=== PATIENT | female | born 1955 | race Two or more races ===

== ENCOUNTER 2018-07-16 17:43 | Inpatient (IN) | payer MEDICARE, OTHER ==
[~2018-07-16] VITALS: Ht 160 cm; Wt 83.9 kg
[2018-07-16 21:15] VITALS: BP 139/69
--- NOTE | 2018-07-16 21:15 | NUR ---
GPS/RN NOTE: ADMITTED DIRECTLY TO GPS UNIT A 63 YEAR OLD FEMALE FROM [facility] VOLUNTARY ADMISSION. PATIENT STATES SHE FEELS VERY ANXIOUS AND DESPERATE. SHE FEELS SCARED BUT CAN'T VERBALIZE EXACTLY WHAT SHE IS SCARED ABOUT. SHE FEELS HOPELESS AND HELPLESS. SHE HAS NO PLAN TO HURT HERSELF, SHE HAD PRIOR TREATMENT BEFORE. NO HX OF PRIOR SUICIDE PER RECORD. PATIENT WAS PLACED IN BED. ALERT ORIENTED X3-4, AMBULATORY, SKIN CLEAR, SHE IS C/O ITCHING ON ARMS AND LEGS. NO S/S OF ANY RESPIRATORY DISTRESS, LUNGS CLEAR BILATERALLY, DENIES ANY PAIN. PATIENT IS CALM, COOPERATIVE, THOUGHT PROCESS INTACT, APPROPRIATE, WELL GROOMED, DEPRESSED, ANXIOUS, SPEAKS URUGUAYAN AND MOSTLY THAI. PATIENT INTERACTS WHEN ENGAGED. PREFERS FULL CODE, SIGNED CONSENTS. BELONGINGS INVENTORIED AND CHECKED FOR CONTRABAND. DR. RO CAME TO THE UNIT AND SAW PATIENT, MED RECON NEEDS TO BE DONE. MRSA SCREEN DONE. SON EUGENE AWARE OF ADMISSION, PER PATIENT. VITALS 139/69, 68, 98.4, 0, 95% SAT. ON ROOM AIR. BED LOCKED AND PLACED ON LOWEST PPOSITION. WILL CONTINUE TO MONITOR Q 15 MINS. TO MAINTAIN SAFETY.
[2018-07-16] MEDS ORDERED: MAGNESIUM HYDROXIDE 30 ML UDC PO PRN (22:30)
[2018-07-16] MEDS ORDERED: ZOLPIDEM TARTRATE 5 MG TABLET PO PRN (22:30)
[2018-07-16] MEDS ORDERED: LORAZEPAM 1 MG TABLET PO PRN (22:30)
[2018-07-16] MEDS ORDERED: MAG HYDROX/AL HYDROX/SIMETH 30 ML UDC PO PRN (22:30)
[2018-07-17] MEDS ORDERED: HALO0.5T (00:27)
[2018-07-17] MEDS ORDERED: FENO160T PO (00:27)
[2018-07-17] MEDS ORDERED: HYDR-3026 (00:31)
[2018-07-17] MEDS ORDERED: HYDR25TA4 PO (00:31)
[2018-07-17] MEDS ORDERED: SOLI10TA2 PO (00:34)
[2018-07-17] MEDS ORDERED: OMEP20CA10 PO (00:34)
[2018-07-17] MEDS ORDERED: TIZA4TAB4 PO (00:35)
[2018-07-17] MEDS ORDERED: AZIT250T13 PO (00:38)
[2018-07-17] MEDS ORDERED: FLUT16SP16 NS (00:39)
[2018-07-17] MEDS ORDERED: FLUO15CR12 TP (00:41)
[2018-07-17] MEDS ORDERED: HYDR-3980 PO (00:45)
[2018-07-17] MEDS ORDERED: HYDR-3026 PO (00:47)
[2018-07-17] MEDS ORDERED: MUPI22OI2 TP (00:49)
[2018-07-17] MEDS ORDERED: LORA-588 PO (00:51)
[2018-07-17] MEDS ORDERED: HYDROCODONE/APAP 10/325MG 1 EA TABLET PO PRN (02:30)
[2018-07-17 07:51] LABS: EOSINOPHILS % (AUTO) 2.8 % (0.0-6.0); HEMATOCRIT 36 % (33-45); HEMOGLOBIN 12.3 g/dL (11.5-14.8); LYMPHOCYTES # (AUTO) 1.3 /CMM (0.8-4.8); LYMPHOCYTES % (AUTO) 27.1 % (20.0-44.0); MEAN CORPUSCULAR HGB CONC 35 g/dl (31.0-36.0); MEAN CORPUSCULAR VOLUME 93 fL (82-100); MONOCYTES # (AUTO) 0.5 /CMM (0.1-1.30); MONOCYTES % (AUTO) 11.4 % (2.0-12.0); NEUTROPHILS # (AUTO) 2.8 /CMM (1.8-8.9); NEUTROPHILS % (AUTO) 57.7 % (43.0-81.0); PLATELET COUNT (AUTO) 165 /CMM (150-450); RED BLOOD CELL COUNT(AUTO) 3.84 MIL/uL (4.0-5.2); WHITE BLOOD COUNT (AUTO) 4.8 K/uL (4.3-11.0)
[2018-07-17 08:00] VITALS: BP 126/75
[2018-07-17 08:11] LABS: ALBUMIN 3.8 g/dL (3.4-5.0); BILIRUBIN,TOTAL 0.3 mg/dL (0.2-1.0); CALCIUM, SERUM 9.1 mg/dL (8.5-10.1); CREATININE 0.8 mg/dL (0.6-1.3); POTASSIUM 4.1 mmol/L (3.5-5.1); TOTAL PROTEIN, SERUM 6.9 g/dL (6.4-8.2)
[2018-07-17] MEDS ORDERED: AZITHROMYCIN 250 MG TABLET PO SCH (09:00)
[2018-07-17] MEDS: hydrOXYzine 10 MG TABLET PO SCH ×2 (09:00→09:35)
[2018-07-17] MEDS: NICOTINE PATCH (21MG) 21 MG PATCH.TD24 TD SCH (09:33)
[2018-07-17] MEDS: TIZANIDINE HCL 4 MG TABLET PO PRN (09:33)
[2018-07-17] MEDS: HYDROCHLOROTHIAZIDE 25 MG TABLET PO SCH (09:33)
[2018-07-17] MEDS: FLUTICASONE PROPIONATE 16 GM BOTTLE NS SCH (09:35)
[2018-07-17] MEDS: MUPIROCIN OINT 2% 22 GM TUBE TP SCH ×2 (09:35→13:00)
[2018-07-17] MEDS: LORATADINE 10 MG TAB.RAPDIS 24H PO SCH (09:35)
[2018-07-17] MEDS ORDERED: LORA10TA7 PO (10:05)
[2018-07-17] MEDS ORDERED: METF-440 PO (10:05)
[2018-07-17] MEDS ORDERED: ROSU5TAB12 PO (10:18)
[2018-07-17] MEDS ORDERED: HALO50VI4 IM (10:18)
[2018-07-17] MEDS ORDERED: BIMA2.5D5 EACHEYE (10:18)
[2018-07-17] MEDS ORDERED: LISI40TA4 PO (10:18)
[2018-07-17] MEDS ORDERED: DICL100G34 TD (10:18)
[2018-07-17] MEDS ORDERED: hydrOXYzine 10 MG TABLET PO PRN (12:00)
[2018-07-17 12:12] LABS: APPEARANCE,URINE SL CLOUDY (CLEAR); BILIRUBIN,URINE NEGATIVE (NEGATIVE); BLOOD, URINE NEGATIVE Ery/uL (NEGATIVE); COLOR,URINE YELLOW (YELLOW); KETONES,URINE NEGATIVE (NEGATIVE); LEUKOCYTE ESTERASE ,URINE NEGATIVE (NEGATIVE); NITRITE, URINE NEGATIVE (NEGATIVE); PH,URINE 7.5 (5.0-8.0); PROTEIN,URINE NEGATIVE (NEGATIVE); UGLUCOSE NEGATIVE (NEGATIVE); UROBILINOGEN,URINE 0.2 EU/dL (0.2)
[2018-07-17 16:00] VITALS: BP 126/53
[2018-07-17] MEDS: METFORMIN 500 MG TABLET PO SCH (17:56)
[2018-07-17] MEDS: HALOPERIDOL 5 MG TABLET PO SCH (17:56)
[2018-07-17] MEDS: BENZTROPINE MESYLATE (1 MG) 1 MG TABLET PO SCH (17:56)
[2018-07-17 20:00] VITALS: BP 148/70
[2018-07-18 08:00] VITALS: BP 145/66
[2018-07-18] MEDS: HALOPERIDOL 5 MG TABLET PO SCH ×2 (08:09→16:19)
[2018-07-18] MEDS: TIZANIDINE HCL 4 MG TABLET PO PRN (08:10)
[2018-07-18] MEDS: METFORMIN 500 MG TABLET PO SCH ×2 (08:10→16:19)
[2018-07-18] MEDS: HYDROCHLOROTHIAZIDE 25 MG TABLET PO SCH (08:10)
[2018-07-18] MEDS: LORATADINE 10 MG TAB.RAPDIS 24H PO SCH (08:11)
[2018-07-18] MEDS: NICOTINE PATCH (21MG) 21 MG PATCH.TD24 TD SCH (08:12)
[2018-07-18] MEDS: BENZTROPINE MESYLATE (1 MG) 1 MG TABLET PO SCH ×2 (08:16→16:19)
[2018-07-18] MEDS: FLUTICASONE PROPIONATE 16 GM BOTTLE NS SCH (08:16)
[2018-07-18 16:00] VITALS: BP 135/69
--- NOTE | 2018-07-18 19:30 | NUR ---
GPS RN NOTE, RECEIVED PATIENT AWAKE AND IN ROOM HAS A COMPLAINT OF A HEADACHE AT 2 OUT OF 10 ON THE PAIN SCALE AT THIS TIME. PATIENT IS TAKING ORAL PAIN MEDICATION FOR THIS PAIN. PATIENT IS DISPLAYING NO S/S OF APPARENT DISTRESS AT THIS TIME. PATIENT BREATHING IS UNLABORED WITH EQUAL RISE AND FALL OF THE CHEST. PATIENT IS ALERT AND ORIENTED X 4 ON ROOM AIR WITH A SPO2 0F 98%. PATIENT IS MEDICATION COMPLIANT, DEPRESSED, COOPERATIVE, AND NEEDS REORIENTATION. PATIENT DENIES SUICIDE AND HOMICIDAL IDEATIONS AT THIS TIME. PATIENT ASSISTED WITH TURNING AND REPOSITIONING Q2HR AND PRN FOR COMFORT AND CIRCULATION. PATIENT HAS NO NEEDS AT THIS TIME. PATIENT EDUCATED ON THE USE OF THE CALL MATA. PATIENT BED SIDE RAILS ARE UP X 2 FOR SAFETY, BED IS LOCKED AND LOW. WILL CONTINUE TO MONITOR AND MAINTAIN SAFETY Q15 MIN WITH THE HELP OF STAFF.
[2018-07-18 20:04] VITALS: BP 130/75
[2018-07-18] MEDS: ACETAMINOPHEN 325 MG TABLET PO PRN (20:18)
--- NOTE | 2018-07-18 20:18 | NUR ---
GPS RN NOTE, PATIENT HAS A COMPLAINT OF A HEADACHE AT A 2 OUT10 ON THE PAIN SCALE AND IS REQUESTING TYLENOL AT THIS TIME. PATIENT VITAL SIGNS ARE STABLE. GAVE TYLENOL 650 MG PO Q6HR PRN ORDERED. WILL REASSESS FOR PAIN AND I WILL CONTINUE TO MONITOR THIS PATIENT.
[2018-07-19 08:00] VITALS: BP 147/84
[2018-07-19] MEDS: PANTOPRAZOLE 40 MG TABLET.DR PO SCH (08:15)
[2018-07-19] MEDS: NICOTINE PATCH (21MG) 21 MG PATCH.TD24 TD SCH (09:00)
[2018-07-19] MEDS: LORATADINE 10 MG TAB.RAPDIS 24H PO SCH (09:00)
[2018-07-19] MEDS: FLUTICASONE PROPIONATE 16 GM BOTTLE NS SCH (09:00)
[2018-07-19] MEDS: TIZANIDINE HCL 4 MG TABLET PO PRN (09:03)
[2018-07-19] MEDS: METFORMIN 500 MG TABLET PO SCH ×2 (09:03→16:31)
[2018-07-19] MEDS: HALOPERIDOL 5 MG TABLET PO SCH ×2 (09:04→16:31)
[2018-07-19] MEDS: BENZTROPINE MESYLATE (1 MG) 1 MG TABLET PO SCH ×2 (09:05→16:31)
[2018-07-19] MEDS: HYDROCHLOROTHIAZIDE 25 MG TABLET PO SCH (09:06)
--- NOTE | 2018-07-19 09:30 | NUR ---
JACQUIE contacted pt son Julien [phone] for collateral information and discharge planning. Son stated he would be picking pt up and transporting home once stable for discharge.
--- NOTE | 2018-07-19 09:57 | NUR ---
JACQUIE contacted Psychiatrist Dr. Marianna Adams [address], [place] [address] [phone] and left a voicemail with his nurse Claudette requesting conformation pt is currently receiving weekly injections of Haldol 135mg.
--- NOTE | 2018-07-19 10:34 | NUR ---
INITIAL DISCHARGE PLAN: Patient wishes to return [place] [address] [place] [address] once stable for discharge. Pts son Julien [phone] stated he would pick pt up and transport home. SW will help form a safe and proper discharge in collaboration with MD.
--- NOTE | 2018-07-19 10:35 | NUR ---
JACQUIE received a call from nurse Claudette at Dr. Marianna Adams's office [address], [place] [address] [phone] requesting release of information before providing JACQUIE with pt information. JACQUIE will fax release to [phone].
--- NOTE | 2018-07-19 10:50 | NUR ---
JACQUIE faxed release of information to Claudette nurse at Dr. Marianna Adams's office [address], [place] [address] [phone] .
--- NOTE | 2018-07-19 11:44 | NUR ---
TREATMENT PLANING: JACQUIE received a call from nurse Claudette at Dr. Marianna Adams's office [address], [place] [address] [phone] stating pt is currently taking Haldol IM 125mg every 4 weeks and was last administered 06/24/28 and it is due 07/22/2018. SW will inform Psychiatrist Dr. Porter.
[2018-07-19 16:00] VITALS: BP 143/93
[2018-07-19] MEDS: ACETAMINOPHEN 325 MG TABLET PO PRN (16:45)
[2018-07-19 19:50] VITALS: BP_SYST 134; BP_SYST 162; BP_DIAS 75; BP_DIAS 94
[2018-07-20 08:00] VITALS: BP 141/67
[2018-07-20] MEDS: PANTOPRAZOLE 40 MG TABLET.DR PO SCH (08:02)
[2018-07-20] MEDS: HALOPERIDOL 5 MG TABLET PO SCH ×2 (08:03→16:50)
[2018-07-20] MEDS: NICOTINE PATCH (21MG) 21 MG PATCH.TD24 TD SCH (08:03)
[2018-07-20] MEDS: METFORMIN 500 MG TABLET PO SCH ×2 (08:03→16:50)
[2018-07-20] MEDS: HYDROCHLOROTHIAZIDE 25 MG TABLET PO SCH (08:05)
[2018-07-20] MEDS: BENZTROPINE MESYLATE (1 MG) 1 MG TABLET PO SCH ×2 (08:05→16:50)
[2018-07-20] MEDS: LORATADINE 10 MG TAB.RAPDIS 24H PO SCH (08:10)
[2018-07-20] MEDS: FLUTICASONE PROPIONATE 16 GM BOTTLE NS SCH (08:10)
--- NOTE | 2018-07-20 10:30 | NUR ---
TREATMENT PLANNING: Psychiatrist Dr. Porter and SW met with pt and discussed pt treatment and mediation stabilization. Pt agreed and signed medication consent. Dr. Porter has ordered Haldol 125mg Q30D which will be administered on 07/21/18.
[2018-07-20 16:00] VITALS: BP 140/76
[2018-07-20 20:25] VITALS: BP 151/80
[2018-07-20] MEDS: ACETAMINOPHEN 325 MG TABLET PO PRN (20:30)
[2018-07-21 08:00] VITALS: BP 134/76
[2018-07-21] MEDS: METFORMIN 500 MG TABLET PO SCH ×2 (08:45→16:06)
[2018-07-21] MEDS: BENZTROPINE MESYLATE (1 MG) 1 MG TABLET PO SCH ×2 (08:45→16:06)
[2018-07-21] MEDS: HALOPERIDOL 5 MG TABLET PO SCH ×2 (08:45→16:06)
[2018-07-21] MEDS: PANTOPRAZOLE 40 MG TABLET.DR PO SCH (08:45)
[2018-07-21] MEDS: LORATADINE 10 MG TAB.RAPDIS 24H PO SCH (08:48)
[2018-07-21] MEDS: FLUTICASONE PROPIONATE 16 GM BOTTLE NS SCH (08:48)
[2018-07-21] MEDS: HYDROCHLOROTHIAZIDE 25 MG TABLET PO SCH (08:52)
[2018-07-21] MEDS: NICOTINE PATCH (21MG) 21 MG PATCH.TD24 TD SCH (08:55)
[2018-07-21] MEDS: ACETAMINOPHEN 325 MG TABLET PO PRN ×2 (09:17→23:30)
--- NOTE | 2018-07-21 09:19 | NUR ---
GPS/RN-NOTES PATIENT C/O HEADACHE AND REQUESTING TYLENOL. TYLENOL 650MG P.O GIVEN PRN ORDER.
[2018-07-21] MEDS ORDERED: HALOPERIDOL DECANOATE IM 100 MG/ML AMPUL IM SCH (10:00)
[2018-07-21 16:00] VITALS: BP 132/74
--- NOTE | 2018-07-21 16:10 | NUR ---
GROUP NOTES: Topic: "Goals yo have when you're discharged from the hospital?" S: "I want to feel better, I want to be strong an ask for help. I have a son who is also mentally ill and I am his caregiver trying to help him is exhausting and he refuses help. I have to make sure I take care of myself to be able to help him as much as I can." O: Pt was teary eyes with sad affect. A: Pt gained awareness into her mental illness and acknowledged she has her family to fall back on when times get tough. P: Pt will continue milieu treatment and continue medication stabilization.
[2018-07-21 20:26] VITALS: BP 153/91
--- NOTE | 2018-07-21 20:32 | NUR ---
OFFERED HER SLEEPING PILL X2, REFUSED BY PATIENT.
--- NOTE | 2018-07-21 23:30 | NUR ---
Requesting for Tylenol, stated, " I ca'nt sleep." Tylenol 650 mg tab po given per request.
[2018-07-22 08:00] VITALS: BP 148/67
[2018-07-22 08:13] VITALS: BP 148/67
[2018-07-22] MEDS: METFORMIN 500 MG TABLET PO SCH (08:13)
[2018-07-22] MEDS: BENZTROPINE MESYLATE (1 MG) 1 MG TABLET PO SCH (08:13)
[2018-07-22] MEDS: HALOPERIDOL 5 MG TABLET PO SCH (08:13)
[2018-07-22] MEDS: HYDROCHLOROTHIAZIDE 25 MG TABLET PO SCH (08:13)
[2018-07-22] MEDS: PANTOPRAZOLE 40 MG TABLET.DR PO SCH (08:13)
[2018-07-22] MEDS: LORATADINE 10 MG TAB.RAPDIS 24H PO SCH (08:15)
[2018-07-22] MEDS: NICOTINE PATCH (21MG) 21 MG PATCH.TD24 TD SCH (08:17)
[2018-07-22] MEDS: FLUTICASONE PROPIONATE 16 GM BOTTLE NS SCH (08:17)
--- NOTE | 2018-07-22 11:47 | NUR ---
GPS/RN-NOTES PATIENT DISCHARGE TO HOME TODAY. DR. SANDHU AND DR. CALZADA AWARE AND AGREES OF THE DISCHARGE WITH ORDERS. ALL DISCHARGE MEDICATIONS WAS REVIEWED WITH PATIENT WITH UNDERSTANDING. PATIENT ALSO STATED" I HAVE SOME MEDICATIONS AT HOME". PATIENT DID NOT VERBALIZE SI/HI,DENIES VISUAL/AUDITORY HALLUCINATIONS PRIOR TO LEAVING THE UNIT. PATIENT'S SON EUGENE AND DTR SUZETTE [employer]O [employer] ESTATE INSTRUCTOR THE PATIENT VIA PRIVATE CAR. PATIENT LEFT THE UNIT WITH ALL BELONGINGS,ALERT ORIENTED X3 AMBULATORY WITH STEADY GAIT. PATIENT WAS ASSISTED IN THE LOBBY BY ONE SANDING MACHINE OPERATOR STAFF FOR SAFETY.DISCHARGE PAPERS INCLUDING RX WAS GIVEN TO ABELARDO BRADFORD.
--- NOTE | 2018-07-22 12:03 | NUR ---
DISCHARGE NOTE: [facility] [address] [facility] [address] . Pts son Julien [phone] picked pt up and transported home. Pts mood was euthymic with congruent affect. Pt denied auditory/visual hallucinations and denied suicidal/homicidal ideation. Pt has a follow up appointment with Psychiatrist: Dr. Marianna Adams [address] , [place], [place] [id number] [phone] on Monday July 23, 2018 at 1:45pm. Pt will also schedule a follow up appointment with Workday Consultant: Dr. Thania Meyers [address], [place] [address] [phone]. The multidisciplinary exit care form was done, printed, signed, and given to the patient.
== END 2018-07-22 11:45 | disposition home or self-care (01) | DRG 885 ==
LOC: GPS 20:58
PROVIDERS: ADMIT Psychiatry & Neurology Psychiatry; ATTEND Psychiatry & Neurology Psychiatry
DX: F20.0 Paranoid schizophrenia (principal); F41.9 Anxiety disorder, unspecified; I10 Essential (primary) hypertension; E78.5 Hyperlipidemia, unspecified; J30.9 Allergic rhinitis, unspecified; F32.9 Major depressive disorder, single episode, unspecified; R73.9 Hyperglycemia, unspecified
CPT/HCPCS: 36415; 80053-TC; 80061-TC; 81000-TC; 84443-TC; 85025-TC; 87081-TC; J1631; Q0177